=== PATIENT | male | born 1955 | race Caucasian/White ===

== ENCOUNTER 2018-07-18 18:23 | Inpatient (IN) | payer OTHER ==
[2018-07-18 19:04] VITALS: BMI 25.1
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
[2018-07-18] MEDS ORDERED: P-EPHED 60MG/TRIPROLIDI 2.5MG TABLET PO PRN (20:04)
[2018-07-18] MEDS ORDERED: MENTHOL/PHENOL 1 EACH UD MM PRN (20:04)
[2018-07-18] MEDS ORDERED: NICOTINE POLACRILEX 2 MG GUM BC PRN (20:04)
[2018-07-18] MEDS ORDERED: MAGNESIUM HYDROX 2400MG/30ML ORAL SUSPENSION 30 ML CUP PO PRN (20:04)
[2018-07-18] MEDS ORDERED: MAG HYDROX/AL HYDROX/SIMETH 30 ML UNIT-DOSE CUP PO PRN (20:04)
[2018-07-18] MEDS ORDERED: MAGNESIUM CITRATE 300 ML BOTTLE PO PRN (20:04)
[2018-07-18] MEDS ORDERED: guaiFENesin/D-METHORPHAN HB 10 ML UNIT-DOSE CUPS PO PRN (20:04)
[2018-07-18] MEDS ORDERED: hydrOXYzine PAMOATE 50 MG CAPSULE (FP) PO PRN (20:04)
[2018-07-18] MEDS ORDERED: LOPERAMIDE HCL 2 MG CAPSULE PO PRN (20:04)
[2018-07-18] MEDS ORDERED: TUBERCULIN PPD 5 TU/0.1ML VIAL ID ONE (23:46)
[2018-07-18] MEDS: THIAMINE HCL 100 MG TABLET (FP) PO SCH (23:48)
[2018-07-19] MEDS ORDERED: TUBERCULIN PPD 5 TU/0.1ML VIAL ID ONE (00:02)
[2018-07-19] MEDS: IBUPROFEN 400 MG TABLET (FP) PO PRN ×2 (00:05→10:05)
[2018-07-19] MEDS: PRENATAL VITAMINS W/ FOLIC ACID TABLET (FP) PO SCH (10:05)
[2018-07-19] MEDS: NICOTINE 21 MG/24 HOURS TOPICAL PATCH TD SCH (10:06)
[2018-07-19 10:44] LABS: URINE APPEARANCE CLEAR; URINE COLOR AMBER; URINE GLUCOSE (UA) NEGATIVE (NEGATIVE); URINE KETONE NEGATIVE (NEGATIVE); URINE LEUK ESTERASE NEGATIVE (NEGATIVE); URINE NITRITE NEGATIVE (NEGATIVE); URINE PROTEIN 1+ (NEGATIVE); URINE UROBILINOGEN 4.0 E.U/dl mg/dL (0.2-1.0)
[2018-07-19 10:46] LABS: CALCIUM OXALATE CRYSTALS FEW /hpf (NONE SEEN); URINE HYALINE CAST 11 /lpf; URINE MUCUS MODERATE
[2018-07-19 10:49] LABS: ALK PHOS 107 U/L (45-117); ANION GAP 7 MMOL/L (8-16); BILIRUBIN,TOTAL 3.4 mg/dL (0.2-1); BLOOD UREA NITROGEN 14 mg/dL (7-18); CALCIUM 8.5 mg/dL (8.5-10.1); CHLORIDE 108 mmol/L (98-107); CO2 22 mmol/L (21-32); CREATININE 0.9 mg/dL (0.55-1.3); GLUCOSE,RANDOM 77 mg/dL (74-106); POTASSIUM 4.1 mmol/L (3.5-5.1); SGOT/AST 73 U/L (15-37); SGPT/ALT 36 U/L (13-61); SODIUM 138 mmol/L (136-145); TOT PROT 7.1 g/dl (6.4-8.2)
[2018-07-19 11:06] LABS: HEMOGLOBIN 13.1 GM/dL (11.7-16.9); RDW 21.8 % (11.9-15.9); WHITE BLOOD COUNT 4.1 K/mm3 (4.0-10.0)
[2018-07-19 11:11] LABS: HEMATOCRIT 41.8 % (35.4-49); MCHC 31.4 g/dl (32.0-35.9); MEAN CELL VOLUME 89.3 fl (80-96); MEAN PLT VOLUME 8.8 fl (7.5-11.1); PLATELET COUNT 105 K/MM3 (134-434); RBC 4.68 M/mm3 (4.00-5.60)
--- NOTE | 2018-07-19 13:58 | PN ---
[facility] Progress Note Note: TC - Re ammonia level 93. Pt sluggish but oriented x 3. Lactulose BID ordered. Repeat NH4 levels on Saturday07/22/18
[2018-07-19] MEDS: LACTULOSE 20 GM/30 ML UDC (FOR ORAL USE ONLY) PO SCH ×2 (14:35→21:30)
[2018-07-19] MEDS: MELATONIN 5 MG TABLETS PO PRN (21:30)
[2018-07-19] MEDS: THIAMINE HCL 100 MG TABLET (FP) PO SCH (21:30)
[2018-07-20] MEDS: LACTULOSE 20 GM/30 ML UDC (FOR ORAL USE ONLY) PO SCH ×2 (10:03→21:28)
[2018-07-20] MEDS: PRENATAL VITAMINS W/ FOLIC ACID TABLET (FP) PO SCH (10:03)
[2018-07-20] MEDS: NICOTINE 21 MG/24 HOURS TOPICAL PATCH TD SCH (10:04)
[2018-07-20] MEDS: THIAMINE HCL 100 MG TABLET (FP) PO SCH (21:29)
[2018-07-20] MEDS: MELATONIN 5 MG TABLETS PO PRN (21:30)
[2018-07-21] MEDS: LACTULOSE 20 GM/30 ML UDC (FOR ORAL USE ONLY) PO SCH ×2 (10:17→21:28)
[2018-07-21] MEDS: PRENATAL VITAMINS W/ FOLIC ACID TABLET (FP) PO SCH (10:17)
[2018-07-21] MEDS: NICOTINE 21 MG/24 HOURS TOPICAL PATCH TD SCH (10:17)
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
[2018-07-21] MEDS: THIAMINE HCL 100 MG TABLET (FP) PO SCH (21:28)
[2018-07-21] MEDS: MELATONIN 5 MG TABLETS PO PRN (21:28)
[2018-07-22] MEDS: PRENATAL VITAMINS W/ FOLIC ACID TABLET (FP) PO SCH (10:19)
[2018-07-22] MEDS: NICOTINE 21 MG/24 HOURS TOPICAL PATCH TD SCH (10:19)
[2018-07-22] MEDS: LACTULOSE 20 GM/30 ML UDC (FOR ORAL USE ONLY) PO SCH ×2 (10:19→21:23)
[2018-07-22] MEDS: THIAMINE HCL 100 MG TABLET (FP) PO SCH (21:23)
[2018-07-22] MEDS: MELATONIN 5 MG TABLETS PO PRN (21:23)
[2018-07-23] MEDS: PRENATAL VITAMINS W/ FOLIC ACID TABLET (FP) PO SCH (10:29)
[2018-07-23] MEDS: NICOTINE 21 MG/24 HOURS TOPICAL PATCH TD SCH (10:29)
[2018-07-23] MEDS: LACTULOSE 20 GM/30 ML UDC (FOR ORAL USE ONLY) PO SCH ×2 (10:29→21:16)
[2018-07-23] MEDS: MELATONIN 5 MG TABLETS PO PRN (21:16)
[2018-07-23] MEDS: THIAMINE HCL 100 MG TABLET (FP) PO SCH (21:16)
[2018-07-24] MEDS: PRENATAL VITAMINS W/ FOLIC ACID TABLET (FP) PO SCH (10:12)
[2018-07-24] MEDS: LACTULOSE 20 GM/30 ML UDC (FOR ORAL USE ONLY) PO SCH ×2 (10:12→21:31)
[2018-07-24] MEDS: NICOTINE 21 MG/24 HOURS TOPICAL PATCH TD SCH (10:13)
--- NOTE | 2018-07-24 10:35 | PN ---
Psychiatric Progress Note Vital Signs: Vital Signs Period Temp Pulse Resp BP Sys/Sims Pulse Ox Last 24 Hr 97.8 F 80 18-18 96/71 Date of Session: 07/24/18 Chief Complaint:: Discharge Note HPI: Patient addressing Alcohol Dependence comorbid with Nicotine Dependence ROS: Liver disease, unspecified Current Medications: Active Medications Generic Name Dose Route Start Last Admin Trade Name Freq PRN Reason Stop Dose Admin Al Hydroxide/Mg Hydroxide 30 ml 07/18/18 20:04 Mylanta Oral Suspension - PO Q6H PRN DYSPEPSIA Eucalyptus/Menthol/Phenol/Sorbitol 1 each 07/18/18 20:04 Cepastat Lozenge - MM Q4H PRN SORE THROAT Guaifenesin 10 ml 07/18/18 20:04 Robitussin Dm - PO Q6H PRN COUGH Hydroxyzine Pamoate 50 mg 07/18/18 20:04 Vistaril - PO Q4H PRN AGITATION Ibuprofen 400 mg 07/18/18 20:04 07/19/18 10:05 Motrin - PO 400 mg Q6H PRN Administration Pain level 4-6 Lactulose 20 gm 07/19/18 14:00 07/24/18 10:12 Cephulac (Oral Use) PO 20 gm BID EMPERATRIZ Administration Loperamide HCl 4 mg 07/18/18 20:04 Imodium - PO Q6H PRN DIARRHEA Magnesium Citrate 300 ml 07/18/18 20:04 Citroma - PO Q48H PRN CONSTIPATION Magnesium Hydroxide 30 ml 07/18/18 20:04 Milk Of Magnesia - PO DAILY PRN CONSTIPATION Melatonin 5 mg 07/18/18 22:00 07/23/18 21:16 Melatonin PO 5 mg HS PRN Administration INSOMNIA Nicotine 21 mg 07/19/18 10:00 07/24/18 10:13 Nicoderm Patch - TD Not Given DAILY EMPERATRIZ Nicotine Polacrilex 2 mg 07/18/18 20:04 Nicorette Gum - BC Q2H PRN NICOTINE REPLACEMENT RX Multivit/Folic Acid/Iron 1 tab 07/19/18 10:00 07/24/18 10:12 Vitamins (Sjr) - PO 1 tab DAILY EMPERATRIZ Administration Pseudoephedrine/Triprolidine 1 combo 07/18/18 20:04 Actifed - PO TID PRN NASAL CONGESTION Thiamine HCl 100 mg 07/18/18 22:00 07/23/18 21:16 Vitamin B1 - PO 100 mg HS EMPERATRIZ Administration Current Side Effect: No Lab tests ordered: Yes Lab tests reviewed: Yes Provider note:: Patient will complete this program on 07/25/18. He has met his treatment goals and will continue to address his issues in outpatient treatment at [facility] [place] at [address] [place] [id number]. Told conventional mortgage underwriter that from his participation in this program, he has learned more self control. He is stable for discharge on 07/25/18 Total face to face time:: 35 Mental Status Exam - Mental Status Exam Alert and Oriented to: Time, Place, Person Cognitive Function: Fair Patient Appearance: Well Groomed Mood: Hopeful, Euthymic Affect: Appropriate Patient Behavior: Cooperative Speech Pattern: Clear Voice Loudness: Normal Thought Process: Intact Thought Disorder: Not Present Hallucinations: Denies Suicidal Ideation: Denies Homicidal Ideation: Denies Insight/Judgement: Fair Sleep: Fair Appetite: Fair Muscle strength/Tone: Normal Gait/Station: Normal Psychiatric Treatment Plan - Problem List (1) Alcohol dependence Current Visit: Yes (2) Nicotine dependence Current Visit: Yes Qualifiers: Nicotine product type: cigarettes Substance use status: uncomplicated Qualified Code(s): F17.210 - Nicotine dependence, cigarettes, uncomplicated (3) Liver disease, unspecified Current Visit: Yes Initial treatment plan: Patient will be discharged tomorrow and referred to [facility] for outpatient treatment
[2018-07-24] MEDS: THIAMINE HCL 100 MG TABLET (FP) PO SCH (21:30)
[2018-07-24] MEDS: MELATONIN 5 MG TABLETS PO PRN (21:30)
[2018-07-25 06:57] VITALS: BP 111/82; PULSE 88; TEMP 97.7
== END 2018-07-25 08:32 | disposition home or self-care (01) | DRG 895 ==
LOC: YASAS 18:23 → Y5N 20:10
PROVIDERS: ADMIT Psychiatry & Neurology Psychiatry; ATTEND Psychiatry & Neurology Psychiatry
PROC: HZ42ZZZ Group Counseling for Substance Abuse Treatment, Cognitive-Behavioral (ICD-10-PCS; principal; 2018-07-18)
DX: F10.20 Alcohol dependence, uncomplicated (principal); R17 Unspecified jaundice; F17.210 Nicotine dependence, cigarettes, uncomplicated; F32.9 Major depressive disorder, single episode, unspecified; K76.9 Liver disease, unspecified; H15.89 Other disorders of sclera; S00.83XS Contusion of other part of head, sequela; W19.XXXS Unspecified fall, sequela
CPT/HCPCS: 36415; 80053; 81003; 81015; 82140; 85027; 86593; 86803; 87350